=== PATIENT | female | born 1995 | race Caucasian/White ===

== ENCOUNTER 2017-07-19 12:20 | Emergency (ER) | payer MEDICAID, SELFPAY ==
[2017-07-19 12:21] VITALS: BP 140/67; PULSE 94; RESP 18; TEMP 36.9; O2SAT 99; BMI 45.0
--- NOTE | 2017-07-19 12:46 | ED.VISSUMM ---
- ER Visit Summary Date of Service: 07/19/17 Chief Complaint: Vomiting History of Present Illness: The patient is a 22 F who states that at 6:00 this morning she was sleeping when she woke with significant nausea and had vomiting. She states she has been unable to eat or drink anything since. The patient has not had any diarrhea. She notes some suprapubic cramping due to her menstrual cycle. No fevers. No bad food exposures. She is visiting from out of [facility]. Her primary care doctors in [place]. Physical Examination: Afebrile vital signs are stable Gen: Well-nourished well-developed obese sitting in the bed comfortably eating ice Head: Normocephalic atraumatic Eyes: Perrl EOMI ENT: TMs clear no rhinorrhea moist mucous membranes Neck: Supple no lymphadenopathy no JVD nontender CVS: Regular rate rhythm no murmurs normal S1-S2 Respiratory: No distress clear to auscultation bilaterally chest nontender Abdomen: Soft nontender nondistended normal bowel sounds no masses Back: Nontender Extremity: Nontender no edema Skin: Normal color no rash Neuro: alert orientated ?3 CN II-XII intact normal strength sensation reflexes gait cerebellar Psych: Normal affect normal mood Emergency Department Course and Treatment: Patient was given Zofran ODT. I believe this to be viral in nature. Patient will use Zofran as needed at home. Return if worsening. Impression: 1. Vomiting This note was generated with [employer] dictation software. It may contain incorrect words, spelling, and punctuation that were not noted in review of the chart prior to signing ED Disposition - Plan for ED Patient: Disposition: Home or Assisted Living Chief Complaint: Nausea/Vomiting Instructions: ED Nausea Vomiting Prescriptions: Ondansetron [Zofran Odt] 4 mg PO Q8H PRN PRN #10 tab PRN Reason: Nausea Referrals: [facility] Doctor,Out of [Primary Care Provider] - 3-5 Days if not improving
[2017-07-19] MEDS: Ondansetron ODT 4 MG Tablet PO (12:47)
--- NOTE | 2017-07-19 12:53 | ED.DCSUM_ITS ---
- ER Visit Summary Date of Service: 07/19/17 Chief Complaint: Vomiting History of Present Illness: The patient is a 22 F who states that at 6:00 this morning she was sleeping when she woke with significant nausea and had vomiting. She states she has been unable to eat or drink anything since. The patient has not had any diarrhea. She notes some suprapubic cramping due to her menstrual cycle. No fevers. No bad food exposures. She is visiting from out of [facility]. Her primary care doctors in [place]. Physical Examination: Afebrile vital signs are stable Gen: Well-nourished well-developed obese sitting in the bed comfortably eating ice Head: Normocephalic atraumatic Eyes: Perrl EOMI ENT: TMs clear no rhinorrhea moist mucous membranes Neck: Supple no lymphadenopathy no JVD nontender CVS: Regular rate rhythm no murmurs normal S1-S2 Respiratory: No distress clear to auscultation bilaterally chest nontender Abdomen: Soft nontender nondistended normal bowel sounds no masses Back: Nontender Extremity: Nontender no edema Skin: Normal color no rash Neuro: alert orientated ?3 CN II-XII intact normal strength sensation reflexes gait cerebellar Psych: Normal affect normal mood Emergency Department Course and Treatment: Patient was given Zofran ODT. I believe this to be viral in nature. Patient will use Zofran as needed at home. Return if worsening. Impression: 1. Vomiting This note was generated with [employer] dictation software. It may contain incorrect words, spelling, and punctuation that were not noted in review of the chart prior to signing ED Disposition - Plan for ED Patient: Disposition: Home or Assisted Living Chief Complaint: Nausea/Vomiting Instructions: ED Nausea Vomiting Prescriptions: Ondansetron [Zofran Odt] 4 mg PO Q8H PRN PRN #10 tab PRN Reason: Nausea Referrals: [facility] Doctor,Out of [Primary Care Provider] - 3-5 Days if not improving
[2017-07-19 13:23] VITALS: PULSE 82; RESP 16; O2SAT 100
== END 2017-07-19 13:28 | disposition home or self-care (01) ==
PROVIDERS: Emergency Provider Emergency Medicine
DX: R11.2 Nausea with vomiting, unspecified (principal); E66.9 Obesity, unspecified; J45.909 Unspecified asthma, uncomplicated; G43.909 Migraine, unspecified, not intractable, without status migrainosus; E28.2 Polycystic ovarian syndrome; Z79.899 Other long term (current) drug therapy
CPT/HCPCS: 99283

== ENCOUNTER 2017-08-31 01:47 | Emergency (ER) | payer MEDICAID, SELFPAY ==
[2017-08-31 01:49] VITALS: BP 149/76; PULSE 88; RESP 18; TEMP 36.7; O2SAT 99; BMI 44.4
[2017-08-31 02:08] LABS: Internal QC Validated? YES +Cl - CLEAR BKGD; Pregnancy, Urine Negative Negative
[2017-08-31 02:16] LABS: Bedside Glucose 88 mg/dL (70-110)
[2017-08-31] MEDS: Metoclopramide 10 MG/2 ML Vial IM (02:17)
[2017-08-31] MEDS: Ketorolac 30 MG/ML Syringe IM (02:17)
--- NOTE | 2017-08-31 02:51 | ED.DCSUM_ITS ---
- ER Visit Summary Date of Service: 08/31/17 Chief Complaint: Dizziness History of Present Illness: The patient is a 22 F presenting for evaluation secondary dizziness. Patient states that approximately 1-2 hours ago she had a gradual onset of a frontal headache that she describes as an aching sensation and a feeling of mild vertigo. Patient states that it was also associated with some nausea and some trouble with focusing her eyes. She denies any recent head injuries, denies any fevers neck stiffness or skin rashes. She does have an underlying history of cluster headaches, but states that this does not feel consistent with that. She denies any numbness or weakness. She took some ibuprofen with some mild improvement associated with this. Review of systems otherwise negative. Physical Examination: Vital signs: Within normal limits General: Well-nourished well-developed no acute distress Head: Normocephalic atraumatic, no temporal artery tenderness or vesicular rash noted. No sinus tenderness to percussion. Eyes: PERRLA, EOMI. Neck: Supple, no lymphadenopathy, no JVD no meningismus. Negative Brudzinski, Kernig, jolt, and heel strike Cardiovascular: Heart regular rate and rhythm no murmurs Respiratory: Lung sounds clear to auscultation bilaterally no respiratory distress Abdomen: Soft, nontender Extremities: Nontender, no edema Skin: Normal color, no rash, no evidence of petechia Neuro: Alert and oriented ?4, cranial nerves II through XII intact, normal strength, sensation Test Results: Not indicated Emergency Department Course and Treatment: Patient presented secondary to a gradual onset of headache with blurred vision and dizziness. Glucose was found to be 88 hCG was found to be negative. Patient was treated with Reglan and Toradol for a likely migraine. Patient's symptoms resolved on repeat evaluation. This point the patient was discharged home with continue conservative care and follow-up with primary care as needed. Disposition: Discharge Impression: 1. Migraine headache, without status migrainosus, not intractable This note was generated with [email or web address] dictation software. It may contain incorrect words, spelling, and punctuation that were not noted in review of the chart prior to signing ED Disposition - Plan for ED Patient: Disposition: Home or Assisted Living Chief Complaint: Dizziness Diagnosis: Migraine headache Instructions: ED Headache Migraine Referrals: [facility] Doctor,Out of [Primary Care Provider] - As Needed
[2017-08-31 02:57] VITALS: PULSE 96; O2SAT 98
== END 2017-08-31 02:58 | disposition home or self-care (01) ==
PROVIDERS: Emergency Provider Emergency Medicine
DX: G43.909 Migraine, unspecified, not intractable, without status migrainosus (principal); E66.9 Obesity, unspecified; J45.909 Unspecified asthma, uncomplicated; E28.2 Polycystic ovarian syndrome; Z79.899 Other long term (current) drug therapy
CPT/HCPCS: 81025; 82962; 96372; 99282